=== PATIENT | male | born 1970 | race African-American/Black ===

== ENCOUNTER 2022-03-25 14:51 | Emergency (ER) | payer OTHER, SELFPAY ==
[2022-03-25] VITALS (7 sets, daily range): BP systolic 122–155; BP diastolic 82–118; PULSE 68–89; RESP 14–24; TEMP 36.8; O2SAT 99–100
--- NOTE | ~2022-03-25 | XR_ITS ---
EXAMINATION: XR chest 2V Exam Date/Time: 03/25/2022 17:00 NUB CARD TENDER HISTORY: Dizziness, headache, nausea after hitting head thursday. Comparison: 06/16/2017. RESULT: Lines, tubes, and devices: None. Lungs and pleura: Clear. Cardiomediastinal silhouette: Stable. Other: No acute osseous or upper abdominal finding. IMPRESSION: No acute cardiopulmonary process. Reviewed, dictated and finalized at location K. CARD TENDER
--- NOTE | ~2022-03-25 | CT_ITS ---
EXAMINATION: CT cervical spine wo con DATE: 03/25/2022 18:07 INDICATION: head injury TECHNIQUE: Computed tomography (CT) of the cervical spine was performed without intravenous contrast. Automated exposure control and iterative reconstruction technique were employed. The dose-length pro duct was 374.93 mGy-cm. COMPARISON: None. FINDINGS: Vertebral Body Alignment: Intact. . Craniocervical and atlantoaxial alignment: Mild degenerative change. Alignment intact. Osseous structures/fracture: No evidence of a lytic or blastic process in the visualized spine. No e vidence of acute fracture. . Cervical soft tissues: The paraspinal soft tissues planes are maintained. Degenerative changes: Multilevel generative disc disease. Multilevel bilateral moderate neural forami nal narrowing. No severe central canal narrowing. IMPRESSION: No acute fracture or traumatic malalignment in the cervical spine Reviewed, dictated and finalized at location K. E GRAINER
--- NOTE | ~2022-03-25 | CT_ITS ---
EXAMINATION: CTA brain carotid DATE: 03/25/2022 19:13 INDICATION: persistent headache, vomiting, dizziness TECHNIQUE: Computed tomographic angiography (CTA) of the head and neck was performed with 100 mL Omni paque-350 intravenous contrast. Automated exposure control and iterative reconstruction technique wer e employed. The dose-length product was 1284.82 mGy-cm. Maximum intensity projection and volume rende red 3D-reconstructions were created by the technologist on a separate workstation. COMPARISON: CT brain, same date. FINDINGS: CTA HEAD: No large vessel occlusion, aneurysm, high flow vascular malformation, nidus or extravasation. CTA NECK: Aortic arch and proximal great vessels: Normal arch anatomy. No atherosclerotic plaque. Right common carotid, carotid bifurcation, and internal carotid artery: Minimal calcified and noncalc ified plaque at the bifurcation.There is 0% stenosis of the proximal right internal carotid artery re lative to normal distal artery lumen diameter (NASCET criteria). Left common carotid, carotid bifurcation, and internal carotid artery: No atherosclerotic plaque.Ther e is 0% stenosis of the proximal left internal carotid artery relative to normal distal artery lumen diameter (NASCET criteria). Vertebral arteries: No significant plaque or stenosis. Other findings: Small air cyst in the left upper lobe. IMPRESSION: 1. No acute large vessel occlusion. 2. No significant vertebral or carotid stenosis. 3. No traumatic arterial injury detected. Reviewed, dictated and finalized at location K. NT BASED MATERIALS PUMP TENDER
--- NOTE | ~2022-03-25 | CT_ITS ---
EXAMINATION: CT brain wo con DATE: 03/25/2022 18:05 INDICATION: head injury, persistent headache, vomiting . TECHNIQUE: Computed tomography (CT) of the head was performed without intravenous contrast. The mA wa s adjusted according to patient size. Iterative reconstruction technique was employed. The dose-lengt h product was 681.00 mGy-cm. COMPARISON: None. FINDINGS: No acute intracranial hemorrhage or extra-axial fluid collection. No hydrocephalus, mass, or herniation. No acute ischemic infarct. Unremarkable dural venous sinus attenuation. No acute osseous abnormality. The aerated spaces are clear. IMPRESSION: No acute intracranial process. Reviewed, dictated and finalized at location K. CTOR OF ACCREDITATION
--- NOTE | 2022-03-25 17:18 | ECG_ITS ---
Measurements Intervals [place] Rate: 71 P: 66 CT: 146 QRS: 44 QRSD: 90 T: 38 QT: 418 QTc: 456 Interpretive Statements SINUS RHYTHM NO PREVIOUS ECG AVAILABLE FOR COMPARISON Electronically Signed On 03-26-2022 13:13:36 SENIOR LINUX ENGINEER by Mirela Chan M.D.
--- NOTE | 2022-03-25 17:56 | ED.DIZZY ---
HPI - Dizziness General Chief Complaint: Dizziness Stated Complaint: dizziness, hit head Time Seen by Provider: 03/25/22 17:16 Source: patient Mode of arrival: ambulatory Limitations: no limitations History of Present Illness HPI Narrative: This is a 52-year-old male that presents to the emergency department after a fall 4 days ago with head injury. Reports he slipped walking down the steps and hit the back of his head. Reports he did lose consciousness. He was evaluated at [facility] after the fall and had a CT scan of his brain. He was discharged with meclizine and Zofran. Since he has had headaches that are unrelieved with [id number] pain medications. Also reports persistent vomiting. Reports photophobia. He is not on any anticoagulation. Denies focal numbness or weakness. Related Data Home Medications Medication Instructions Recorded Confirmed No Home Medications 03/25/22 03/25/22 Allergies Allergy/AdvReac Type Severity Reaction Status Date / Time No Known Allergies Allergy Verified 03/25/22 18:22 Review of Systems Review of Systems: CONSTITUTIONAL: Denies fever EYES: Reports visual changes GASTROINTESTINAL: Reports vomiting MUSCULOSKELETAL: Denies joint pain, or myalgia. NEUROLOGIC: Reports headache. Denies numbness, or weakness. All systems reviewed & are unremarkable except as noted in HPI and below PMFSH Past Medical History Medical History (Updated 03/25/22 @ 20:21 by Sobia Lo PA-C) No active medical problems Family History Family History (Updated 10/26/15 @ 23:19 by DOCTOR UNKNOWN) Father Asthma Family history of coronary artery disease Sibling Asthma Family history of elevated blood lipids Family history of diabetes mellitus in first degree relative Mother Family history of diabetes mellitus in first degree relative Social History Social History Smoking status: Never smoker Alcohol intake: never Exam Narrative: GENERAL: Well-appearing, well-nourished, and in no acute distress. HEAD: Normocephalic, atraumatic. EYES: PERRLA and EOMI. ENT: Nares clear, no rhinorrhea or epistaxis. Mucous membranes moist. Oropharynx without tonsillar hypertrophy exudate or other lesions. Bilateral TMs pearly jose non-bulging NECK: Supple. No adenopathy or masses. CHEST: Clear to auscultation. No respiratory distress. No wheezes rales or rhonchi HEART: Regular rate and rhythm. No murmur heard. Normal peripheral pulses. ABDOMEN: Soft, nontender, nondistended, normal active bowel sounds. EXTREMITIES: Normal range of motion. No edema. Strength equal in bilateral upper and lower extremities (5/5) SKIN: Warm, dry, no rash. NEURO: No focal deficits. Alert and oriented x3. Cranial nerves II through XII grossly intact PSYCH: Normal mood and affect Course Consultations Consultation #1: Patient and family were updated on work-up. He is currently resting comfortably. Date: 03/25/22 Vital Signs Vital signs: Vital Signs Temperature 98.2 F 03/25/22 14:58 Pulse Rate 89 03/25/22 14:58 Respiratory Rate 16 03/25/22 14:58 Blood Pressure 135/82 03/25/22 14:58 Pulse Oximetry 99 03/25/22 14:58 Oxygen Delivery Room Air 03/25/22 14:58 Temperature 98.2 F 03/25/22 14:58 Pulse Rate 68 03/25/22 19:27 Respiratory Rate 22 H 03/25/22 19:27 Blood Pressure 142/100 H 03/25/22 19:27 Pulse Oximetry 100 03/25/22 19:27 Oxygen Delivery Room Air 03/25/22 14:58 MDM - Dizziness MDM Narrative Medical decision making narrative: Patient presents to the emergency department after a head injury 4 days ago with persistent dizziness, headaches and vomiting. He is afebrile and nontoxic-appearing. His vitals are stable. He is neurologically intact. CBC and metabolic panel without concerning findings. CT scan of the brain and cervical spine also without acute findings. EKG without concerning changes. Chest x-ray is without acute cardiopulmonary abnormality.
[2022-03-25 18:21] LABS: Basophils Percent Auto 0.5 % (0.2-1.2); Eosinophils Absolute Auto 0.2 K/mm3 (0-0.3); Eosinophils Percent Auto 3.5 % (0-4.4); Hematocrit 41.4 % (42.0-52.0); Hemoglobin 14.1 g/dL (14.0-18.0); Immature Granulocyte Absolute 0.02 K/mm3 (0.00-0.031); Immature Granulocyte Percent A 0.3 % (0-0.5); Lymphocytes Absolute Auto 2.48 K/mm3 (0.9-3.2); Lymphocytes Percent Auto 37.3 % (18.3-44.2); Mean Corpuscular HGB Conc 34.1 g/dl (32-36); Mean Corpuscular Hemoglobin 30.2 pg (26-34); Mean Corpuscular Volume 88.7 fl (80-100); Mean Platelet Volume 9.7 fl (7.4-10.4); Monocytes Absolute Auto 0.5 K/mm3 (0.1-0.6); Monocytes Percent Auto 7.2 % (2.6-8.5); Neutrophils Absolute Auto 3.4 K/mm3 (1.3-6.7); Neutrophils Percent Auto 51.2 % (45.5-73.1); Platelet Count Result 306 k/mm3 (150-375); Red Blood Count 4.67 M/mm3 (4.6-6.20); Red Cell Distribution Width 12.7 % (11.5-14.5); White Blood Count 6.7 K/mm3 (4.5-10.0)
[2022-03-25 18:34] LABS: Anion Gap 6 mmol/L (8-16); Blood Urea Nitrogen 15 mg/dL (9-20); Calcium 8.6 mg/dL (8.4-10.2); Carbon Dioxide 33 mmol/L (22-30); Chloride 101 mmol/L (98-107); Estimated CRCL calculation 76 ml/min; Estimated Glomerular Filt Rate > 60; Glucose 105 mg/dL (65-110); Potassium 3.8 mmol/L (3.4-5.0); Sodium 140 mmol/L (137-145)
== END 2022-03-25 20:43 | disposition home or self-care (01) ==
PROVIDERS: Emergency Provider Physician Assistant
DX: S09.90XA Unspecified injury of head, initial encounter (principal); W10.9XXA Fall (on) (from) unspecified stairs and steps, initial encounter
CPT/HCPCS: 36415; 70450; 70496; 70498; 71046; 72125; 80048; 85025; 93005; 96365; 99284; J0131; Q9967

== ENCOUNTER 2023-05-28 11:43 | Outpatient (CLI) | payer OTHER, SELFPAY ==
[2023-05-28 16:02] LABS: Alanine Aminotransferase 25 U/L (6-50); Albumin Level 3.9 g/dL (3.5-5.1); Alkaline Phosphatase 84 U/L (38-126); Anion Gap 4 mmol/L (8-16); Aspartate Amino Transferase 54 U/L (17-59); Bilirubin,Total 0.6 mg/dL (0.2-1.3); Blood Urea Nitrogen 12 mg/dL (9-20); Calcium 8.8 mg/dL (8.4-10.2); Carbon Dioxide 28 mmol/L (22-30); Chloride 109 mmol/L (98-107); Cholesterol 172 mg/dL (0-200); Estimated Glomerular Filt Rate > 60; Glucose 78 mg/dL (65-110); HDL Direct 38 mg/dL; Lipase 48 U/L (23-300); Sodium 141 mmol/L (137-145); Triglycerides 61 mg/dL (<150)
[2023-05-28 16:13] LABS: LDL Cholesterol Direct 118 mg/dL
[2023-05-28 16:19] LABS: Basophils Percent Auto 0.2 % (0.2-1.2); Eosinophils Absolute Auto 0.4 K/mm3 (0-0.3); Eosinophils Percent Auto 8.8 % (0-4.4); Hematocrit 40.1 % (42.0-52.0); Immature Granulocyte Absolute 0.01 K/mm3 (0.00-0.031); Immature Granulocyte Percent A 0.2 % (0-0.5); Lymphocytes Absolute Auto 1.94 K/mm3 (0.9-3.2); Lymphocytes Percent Auto 39.7 % (18.3-44.2); Mean Corpuscular HGB Conc 32.4 g/dl (32-36); Mean Corpuscular Hemoglobin 29.4 pg (26-34); Mean Corpuscular Volume 90.7 fl (80-100); Mean Platelet Volume 10.8 fl (7.4-10.4); Monocytes Absolute Auto 0.4 K/mm3 (0.1-0.6); Monocytes Percent Auto 8.6 % (2.6-8.5); Neutrophils Absolute Auto 2.1 K/mm3 (1.3-6.7); Neutrophils Percent Auto 42.5 % (45.5-73.1); Platelet Count Result 210 k/mm3 (150-375); Red Blood Count 4.42 M/mm3 (4.6-6.20); Red Cell Distribution Width 13.9 % (11.5-14.5); White Blood Count 4.9 K/mm3 (4.5-10.0)
[2023-05-28 16:31] LABS: Hepatitis B Surface Antigen Negative (Negative)
[2023-05-28 16:37] LABS: HAV RESULT Negative (Negative); Hepatitis B Core IgM Result Negative (Negative)
[2023-05-28 16:48] LABS: Hemoglobin A1C 5.6 % (<5.7); Hepatitis C Virus Antibody Negative (Negative)
== END 2023-05-28 11:44 | disposition home or self-care (01) ==
LOC: ANHGOSHLAB 11:44
PROVIDERS: PCP Emergency Medicine; Visit Provider Emergency Medicine
DX: R10.11 Right upper quadrant pain (principal); E78.00 Pure hypercholesterolemia, unspecified; R73.03 Prediabetes
CPT/HCPCS: 36415; 80053; 80061; 80074; 83036; 83690; 85025

== ENCOUNTER 2023-06-24 08:05 | Day surgery (SDC) | payer OTHER, SELFPAY ==
[2023-06-24 09:16] VITALS: BP 140/100; PULSE 72; RESP 18; TEMP 37; O2SAT 100
[2023-06-24] MEDS: LACTATED RINGERS 1,000 ML 150 ML IV CONT (09:21)
--- NOTE | 2023-06-24 09:21 | P.HP_ITS ---
History of Present Illness History of Present Illness Consent: Risks, benefits, and alternatives have been discussed and questions answered. Patient agrees to proceed with procedure. Chief complaint: Neoplasm Screening Narrative: Daljit Wilkes is a 53 year old male presents for screening colonoscopy. Patient's current weight appetite and bowel movements are normal. Patient denies abdominal pain. Has had no bleeding. Family history is noncontributory. Review of Systems Review of Systems: review of Systems is noncontributory. [facility] Past Medical History Medical History No active medical problems Family History Family History Father Asthma Family history of coronary artery disease Sibling Asthma Family history of elevated blood lipids Family history of diabetes mellitus in first degree relative Mother Family history of diabetes mellitus in first degree relative Social History Social History Smoking status: Never smoker Alcohol intake: never Substance use: never Substance use type: does not use Lack of Transportation: No Lack of Food: Never True Current Housing: I Have Housing Concerned About Future Housing: No Difficulty Paying Gas/Electric Bills: No Difficulty Paying for Meds: No Currently Unemployed: No Education: Decline to Answer Difficulty w/ Childcare or Family Care: No Meds Home Medications and Allergies Home Medications Medication Instructions Recorded Confirmed Type atorvastatin 20 mg tablet 20 mg PO QHS #60 tabs 04/15/22 06/24/23 Rx Allergies Allergy/AdvReac Type Severity Reaction Status Date / Time No Known Allergies Allergy Verified 06/24/23 09:15 Vital Signs Vital Signs - 24 hr 06/24/23 09:16 Temperature 98.6 F Pulse Rate 72 Respiratory Rate 18 Blood Pressure 140/100 H Pulse Oximetry 100 Oxygen Delivery Room Air Exam Narrative: Physical exam reveals patient to be a stable. HEENT exam is unremarkable. Patient is anicteric. Lungs are clear to auscultation and to percussion. Heart is without murmur or extra sounds. Abdomen bowel are present soft nontender with no organomegaly. Digital external rectal exam normal. Assessment and Plan Assessment and plan (1) Screening for colon cancer: Code(s): Z12.11 - Encounter for screening for malignant neoplasm of colon Status: Acute Assessment and Plan: Patient presents today for screening colonoscopy. He appears to be at average risk for colon polyp.
--- NOTE | 2023-06-24 09:48 | WPDANESEPPF ---
Anes - Initial Pre Proc Eval Procedure: Operation Date: 06/24/23 10:30 Proposed Procedures p Screening Colonoscopy - Jacques Turk MD Date/Time: 06/24/23 09:48 Surgeon: Jacques Turk MD Pre Op Diagnosis: Neoplasm Screening Patient Data Age: 53 Gender: M Height: 1.75 m Weight: 89 kg Last Vital Signs Temp 37.0 C 06/24/23 09:16 Pulse 72 06/24/23 09:16 Resp 18 06/24/23 09:16 BP 140/100 H 06/24/23 09:16 Pulse Ox 100 06/24/23 09:16 O2 Del Method Room Air 06/24/23 09:16 Allergies Allergy/AdvReac Type Severity Reaction Status Date / Time No Known Allergies Allergy Verified 06/24/23 09:15 Home Medications Medication Instructions Recorded Confirmed Type atorvastatin 20 mg tablet 20 mg PO QHS #60 tabs 04/15/22 06/24/23 Rx Patient hx anesthesia problems: none Family hx anesthesia problems: none Results Review: All pre-operative results and documents have been reviewed as part of the pre-operative evaluation. [facility] Past Medical History Medical History No active medical problems Family History Family History Father Asthma Family history of coronary artery disease Sibling Asthma Family history of elevated blood lipids Family history of diabetes mellitus in first degree relative Mother Family history of diabetes mellitus in first degree relative Social History Social History Smoking status: Never smoker Alcohol intake: never Substance use: never Substance use type: does not use Lack of Transportation: No Lack of Food: Never True Current Housing: I Have Housing Concerned About Future Housing: No Difficulty Paying Gas/Electric Bills: No Difficulty Paying for Meds: No Currently Unemployed: No Education: Decline to Answer Difficulty w/ Childcare or Family Care: No Anes - Eval Final PreProcedure Day of Procedure 06/24/23 09:48 Patient weight: overweight Heart: regular rate and rhythm Lungs: decreased breath sounds Airway: Mallampati scale class II Neurological: alert and oriented Last oral intake: >/= 8 hours ASA classification: III Emergent: no Anesthetic plan: proceed Anesthesia type and monitoring: general GIVS and standard monitoring Results Review: All pre-operative results and documents have been reviewed as part of the pre-operative evaluation. Informed Consent: The patient's anesthetic plan and its attendant risks and benefits were discussed with the patient/family/POA. Questions were solicited and answers provided to the satisfaction of the patient/family/POA.
[2023-06-24 10:42] VITALS: BP 133/91; PULSE 76; RESP 18; O2SAT 95
[2023-06-24 10:52] VITALS: BP 106/92; PULSE 70; RESP 18; O2SAT 100
[2023-06-24 11:02] VITALS: BP 114/81; PULSE 68; RESP 18; O2SAT 100
--- NOTE | 2023-06-24 11:16 | WPDANESPN ---
Anes - Prog Note Post-Op Date/Time: 06/24/23 11:16 Cardiovascular status: normal Respiratory status: normal Airway patency: baseline Mental status: baseline Post-Op hydration status: normal Vital Signs: Last Vital Signs Temp 37.0 C 06/24/23 09:16 Pulse 68 06/24/23 11:02 Resp 18 06/24/23 11:02 BP 114/81 06/24/23 11:02 Pulse Ox 100 06/24/23 11:02 O2 Del Method Room Air 06/24/23 11:02 Pain Score (VAS): 0 I/O: Intake & Output 06/23/23 06/24/23 06/24/23 23:59 07:59 15:59 Intake Total 325 Balance 325 Patient Feedback: Patient satisfied with anesthetic care.
== END 2023-06-24 11:15 | disposition home or self-care (01) ==
PROVIDERS: PCP Emergency Medicine; Visit Provider Internal Medicine Gastroenterology
PROC: 0DJD8ZZ Inspection of Lower Intestinal Tract, Via Natural or Artificial Opening Endoscopic (ICD-10-PCS; CPT 45378; principal; 2023-06-24 10:30)
DX: Z12.11 Encounter for screening for malignant neoplasm of colon (principal); K64.8 Other hemorrhoids
CPT/HCPCS: 45378